=== PATIENT | female | born 1995 | race Caucasian/White ===

== ENCOUNTER 2022-01-25 17:15 | Outpatient (REF) | payer MEDICAID, SELFPAY ==
[2022-01-27 14:12] LABS: H Pylori Breath Test Positive (Negative)
== END 2022-01-25 17:16 | disposition home or self-care (01) ==
LOC: HO.LNP 17:15
PROVIDERS: Visit Provider Nurse Practitioner Family
DX: K21.9 Gastro-esophageal reflux disease without esophagitis (principal); K58.1 Irritable bowel syndrome with constipation; K59.04 Chronic idiopathic constipation
CPT/HCPCS: 83013; 99202

== ENCOUNTER 2022-03-28 09:18 | Outpatient (REF) | payer MEDICAID, SELFPAY ==
[2022-03-28 10:32] LABS: Amylase 33 U/L (28-100); Lipase 18 U/L (8-78)
[2022-03-28 10:44] LABS: TSH reflex Free T4 0.01 uIU/mL (0.32-4.0)
[2022-03-28 11:11] LABS: Vitamin B12 233 pg/mL (200-900)
[2022-03-28 13:23] LABS: Free T4 (Free Thyroxine) 1.43 ng/dL (0.71-1.85)
[2022-04-01 15:23] LABS: Vitamin D 25-OH, D2 <4 ng/mL; Vitamin D 25-OH, D3 18 ng/mL; Vitamin D 25-OH, Total 18 ng/mL (30-100)
[2022-04-06 17:41] LABS: Pancreatic Elastase-1 >500 mcg/g
== END 2022-03-28 09:19 | disposition home or self-care (01) ==
LOC: HO.LAB 09:18
PROVIDERS: Visit Provider Nurse Practitioner Family
DX: Z01.818 Encounter for other preprocedural examination (principal); R10.9 Unspecified abdominal pain; E55.9 Vitamin D deficiency, unspecified; R19.7 Diarrhea, unspecified; K21.9 Gastro-esophageal reflux disease without esophagitis; K58.2 Mixed irritable bowel syndrome; K62.5 Hemorrhage of anus and rectum
CPT/HCPCS: 36415; 82150; 82306; 82607; 82656; 82746; 83690; 84439; 84443; 87338; 99212

== ENCOUNTER 2022-04-06 10:38 | Day surgery (SDC) | payer MEDICAID, SELFPAY ==
--- NOTE | 2022-04-05 14:56 | P.CONAN_ITS ---
Documented by User: Mikayla Mon NP 04/05/22 14:57 HPI - Anesthesia Eval Consult details Narrative: 26yo F for Upper Endoscopy and Colonoscopy [facility] Past Medical History Medical History Anxiety Hx of ectopic Subclinical hyperthyroidism Family History Family History Mother Ovarian cancer Social History Social History Household Members: Family Alcohol intake: never Patient Tobacco Use Status: Never used Tobacco e-Cigarette/Vaping Use: Never Used Use of substances other than those prescribed or required for medical reasons: Yes Substance Use Type: Marijuana Substance Use Frequency: Occasionally Are you DNR?: No Advance Directives: No Advance Directives Information Provided: Yes Meds Allergies Allergy/AdvReac Type Severity Reaction Status Date / Time No Known Allergies Allergy Verified 04/06/22 11:40 Home Medications Medication Instructions Recorded Confirmed Last Taken Type hydroxyzine HCl 25 mg tablet 25 - 50 mg PO TID PRN anxiety 01/25/22 04/06/22 Unknown History Exam Exam Date and Time: April 05, 2022 202 Assessment and Plan Assessment Anesthesia Assessment: Chart Reviewed Documented by User: Rachel Blankenship MD 04/06/22 12:52 [facility] Past Medical History Medical History Anxiety Hx of ectopic Subclinical hyperthyroidism Functional capacity: independent ambulation Patient : No Family History Family History Mother Ovarian cancer Family history of problems with anesthesia: No Surgical History History of Problems with Anesthesia: No Social History Social History Household Members: Family Alcohol intake: never Patient Tobacco Use Status: Never used Tobacco e-Cigarette/Vaping Use: Never Used Use of substances other than those prescribed or required for medical reasons: Yes Substance Use Type: Marijuana Substance Use Frequency: Occasionally Are you DNR?: No Advance Directives: No Advance Directives Information Provided: Yes Meds Allergies Allergy/AdvReac Type Severity Reaction Status Date / Time No Known Allergies Allergy Verified 04/06/22 11:40 Home Medications Medication Instructions Recorded Confirmed Last Taken Type hydroxyzine HCl 25 mg tablet 25 - 50 mg PO TID PRN anxiety 01/25/22 04/06/22 Unknown History Exam Airway Mallampati Class: II TM Dist: >3cm Neck ROM: Full Heart: RRR Lungs: CTA Assessment and Plan Final Anesthetic Review Family History of Problems with Anesthesia: No History of Problems with Anesthesia: No ASA Class: II Final Preanesthetic Review: No Changes in Pt Med Stat, Meds/Allgs Chart Reviewed, Consent Obtained/Reviewed and Anes Risks/Benef Reviewed Patient Risk: Low Procedure Risk: Low Anesthetic Plan Anesthetic Plan: MAC: Disposition: Standard PACU
[2022-04-06 11:38] VITALS: BMI 24.5
[2022-04-06 11:47] VITALS: BP 113/67; PULSE 76; RESP 15; TEMP 36.7; O2SAT 99
[2022-04-06] MEDS: Lactated Ringers 1,000 ML 100 ML IVCONT (11:53)
[2022-04-06 11:55] LABS: UPreg QC Valid YES; Urine Pregnancy NEGATIVE (NEGATIVE)
--- NOTE | 2022-04-06 13:57 | MHC.SHP ---
Pre-Procedural Eval Section A Date of Service: 04/06/22 The patient is an INPATIENT: No Changes since office visit: Yes Patient answered all questions; No Cold of Flu in the past 2 weeks, No New Medical Problems and No Changes in Medication The History & Physical has been completed within 30 days and I have reviewed it.: Yes Section B Chief Complaint: IBS,reflux disease Allergies: Allergies Allergy/AdvReac Type Severity Reaction Status Date / Time No Known Allergies Allergy Verified 04/06/22 11:40 Plan I have reviewed the history and physical and performed a pertinent physical examination on my patient. No changes have occurred unless specified.
--- NOTE | 2022-04-06 14:00 | PM.OP ---
Brief Operative Note Date of Service: 04/06/22 Pre-op diagnosis: Abdominal pain, dyspepsia, bloating, hx of H Pylori infection, diarrhea, rectal bleeding Post-op diagnosis: other (Gastritis, diverticulosis, hemorrhoids) Procedure: FLEXIBLE TRANSORAL UPPER GASTROINTESTINAL ENDOSCOPY WITH BIOPSIES AND COLONOSCOPY TILL CECUM WITH UPPER ENDOSCOPY Consent: Indications for the procedure and potential complications of bleeding, perforation, reaction to medications and missed diagnosis were discussed with the patient and informed consent was obtained. Instrument: Olympus GIF H 190 mid size upper endoscope Monitoring: Vital signs and clinical assessment, continuous EKG monitoring, Pulse oximetry, Carbon Dioxide monitoring and blood pressure monitoring were done throughout the procedure. Procedure: The patient was placed in the left lateral decubitis position and pre-procedure medications were administered and a bite block was placed. The endoscope was inserted into the mouth and advanced under direct vision to the third part of duodenum. A careful inspection was made as the upper endoscope was withdrawn including a retroflexed examination of the proximal stomach; Findings and interventions are described below. Findings: Larynx: Normal Esophagus: GE junction at 35 cms. No esophagitis or Casillas's. Stomach: Mild gastric erythema. Biopsies were obtained. Grade 2 flap valve on retroflexed examination of the cardia. Duodenum: Normal bulb and descending duodenum. Biopsies were obtained from 3rd part of the duodenum to check for celiac sprue. Intervention: Biopsies as noted above COLONOSCOPY PROCEDURE NOTE Consent: Indications for the procedure and potential complications of bleeding, perforation, reaction to medications and missed diagnosis were discussed with the patient and informed consent was obtained. Instrument: Olympus PCF H 190 L variable stiffness pediatric colonoscope Monitoring: Vital signs and clinical assessment, intermittent blood pressure monitoring, continuous EKG monitoring, Pulse oximetry and Carbon Dioxide monitoring were done throughout the procedure. Colon withdrawl time was 18 minutes. Procedure: The patient was placed in the left lateral decubitis position and pre-procedure medications were administered. After a digital rectal examination of the ano-rectum, the video colonoscope was inserted into the rectum and advanced through the colon to the cecum. The colonoscope was slowly withdrawn in a retrograde panoramic fashion and the colon mucosa was carefully examined including a retroflexed view of the rectum. Findings and interventions are described below. Procedure Difficulty: : Without difficulty Findings: Terminal Ileum: Distal 5 cms was examined and multiple 2-3 mm nodules - biopsies were obtained. Cecum: Normal Ascending Colon: Normal Transverse Colon: Normal Descending Colon: Normal Sigmoid Colon: Moderate diverticulosis Rectum: Normal Ano-rectum: Moderate internal hemorrhoids Colon preparation: Good Impression and Post Procedure Diagnosis: Endoscopy Findings: STOMACH: Mild antral gastritis - antral biopsies were obtained to check for H pylori culture and sensitivity. DUODENUM: Normal - biopsied to check for celiac sprue Colonoscopy Findings: No polyps were detected. Multiple 2-3 mm nodules in TI (likely lymphoid hyperplasia) - biopsies were obtained. Random biopsies were obtained from TI, rt and left colon Moderate diverticulosis seen in the sigmoid colon Moderate hemorrhoids on retroflexed exam. Plan: Await pathology results Patient has an appointment on 08/20/22 in the GI Clinic with Carole Castillo FNP-BC. Repeat Colonoscopy interval based on path results - in 20 yrs if biopsies are negative. H Pylori and diverticulosis handouts were given in the discharge area Surgeon: Jasmine Oh MD Anesthesia: MAC Was an Information Systems Analyst used for this Procedure?: No Information Systems Analyst: Amelia Huston Estimated blood loss (mL): 0 Pathology: other (A: Small bowel bx. rule out celiac disease. B: Gastric antrum bx. for H.pylori C: Gastric antrum bx. culture and sensitivity ( sent apart to the lab [facility]) not include in this package D: Terminal ileum bx. rule out IBD. ) Condition: stable Disposition: PACU
--- NOTE | 2022-04-06 14:01 | W.PM.OPN ---
Operative Note Operative Note Date of Service: 04/06/22 Narrative: Pre-op diagnosis: Abdominal pain, dyspepsia, bloating, hx of H Pylori infection, diarrhea, rectal bleeding Post-op diagnosis:?other (Gastritis, diverticulosis, hemorrhoids) Procedure: FLEXIBLE TRANSORAL UPPER GASTROINTESTINAL ENDOSCOPY WITH BIOPSIES AND COLONOSCOPY TILL CECUM WITH BIOPSIES UPPER ENDOSCOPY Consent:?Indications for the procedure and potential complications of bleeding, perforation, reaction to medications and missed diagnosis were discussed with the patient and informed consent was obtained. Instrument:?Olympus GIF H 190 mid size upper endoscope Monitoring: Vital signs and clinical assessment, continuous EKG monitoring, Pulse oximetry, Carbon Dioxide monitoring and blood pressure monitoring were done throughout the procedure. Procedure:?The patient was placed in the left lateral decubitis position and pre-procedure medications were administered and a bite block was placed. The endoscope was inserted into the mouth and advanced under direct vision to the third part of duodenum. A careful inspection was made as the upper endoscope was withdrawn including a retroflexed examination of the proximal stomach; Findings and interventions are described below. Findings: Larynx:? Normal Esophagus:?GE junction at 35 cms. No esophagitis or Casillas's. Stomach:?Mild gastric erythema. Biopsies were obtained. Grade 2 flap valve on retroflexed examination of the cardia. Duodenum:?Normal bulb and descending duodenum. Biopsies were obtained from 3rd part of the duodenum to check for celiac sprue. Intervention:?Biopsies as noted above COLONOSCOPY PROCEDURE NOTE Consent:?Indications for the procedure and potential complications of bleeding, perforation, reaction to medications and missed diagnosis were discussed with the patient and informed consent was obtained. Instrument:?Olympus PCF H 190 L variable stiffness pediatric colonoscope Monitoring:?Vital signs and clinical assessment, intermittent blood pressure monitoring, continuous EKG monitoring, Pulse oximetry and Carbon Dioxide monitoring were done throughout the procedure. Colon withdrawl time was 18 minutes. Procedure:?The patient was placed in the left lateral decubitis position and pre-procedure medications were administered. After a digital rectal examination of the ano-rectum, the video colonoscope was inserted into the rectum and advanced through the colon to the cecum. The colonoscope was slowly withdrawn in a retrograde panoramic fashion and the colon mucosa was carefully examined including a retroflexed view of the rectum. Findings and interventions are described below. Procedure Difficulty:?: Without difficulty Findings: Terminal Ileum: Distal 5 cms was examined and multiple 2-3 mm nodules - biopsies were obtained. Cecum:? Normal Ascending Colon:??Normal Transverse Colon:??Normal Descending Colon:? Normal Sigmoid Colon:??Moderate diverticulosis Rectum:??Normal Ano-rectum:??Moderate internal hemorrhoids Colon preparation:? Good? Impression and Post Procedure Diagnosis: Endoscopy Findings: STOMACH:? Mild antral gastritis - antral biopsies were obtained to check for H pylori culture and sensitivity. DUODENUM:???Normal - biopsied to check for celiac sprue Colonoscopy Findings: No polyps were detected. Multiple 2-3 mm nodules in TI (likely lymphoid hyperplasia) - biopsies were obtained. Random biopsies were obtained from TI, rt and left colon Moderate diverticulosis seen in the sigmoid colon Moderate hemorrhoids on retroflexed exam. Plan: Await pathology results Patient has an appointment on 08/20/22 in the GI Clinic with Carole Castillo FNP-BC. Repeat Colonoscopy interval based on path results - in 20 yrs if biopsies are negative. H Pylori and diverticulosis handouts were given in the discharge area Surgeon: Jasmine Oh MD Anesthesia:?MAC Was an Clinical Medical Transcriptionist used for this Procedure?:?No Clinical Medical Transcriptionist:?Amelia Huston Estimated blood loss (mL):?0 Pathology:?other (A: Small bowel bx. rule out celiac disease.? B: Gastric antrum bx. for H.pylori? C: Gastric antrum bx. culture and sensitivity ( sent apart to the lab [facility]) not include in this package? D: Terminal ileum bx. rule out IBD. ? ? ? ) Condition:?stable Disposition:?PACU
[2022-04-06 14:52] VITALS: BP 101/51; PULSE 77; RESP 16; TEMP 36.5; O2SAT 100
[2022-04-06 15:07] VITALS: BP 104/50; PULSE 57; RESP 18; O2SAT 100
[2022-04-06 15:22] VITALS: BP 119/65; PULSE 64; RESP 16; O2SAT 100
[2022-04-06 15:37] VITALS: BP 119/65; PULSE 58; RESP 16; TEMP 36.3; O2SAT 100
--- NOTE | 2022-04-06 15:52 | HO.POSTANES ---
Post Anesthesia Evaluation Post Anesthesia Evaluation Vital Signs: Vital Signs Temp Pulse Resp BP Pulse Ox O2 Del Method O2 Flow Rate 04/06/22 15:37 97.3 F 58 16 119/65 100 Room Air 04/06/22 15:22 64 16 119/65 100 Room Air 04/06/22 15:07 57 18 104/50 L 100 Nasal Cannula 2 04/06/22 14:52 97.7 F 77 16 101/51 L 100 Nasal Cannula 2 04/06/22 11:47 98.0 F 76 15 113/67 99 Room Air Anesthesia: Monitored Mental Status: Awake Pain Control: Satisfactory Nausea/Vomiting: None Hydration: Adequate Anesthesia-Related Issues: No Anes. Related Issues
== END 2022-04-06 16:05 | disposition home or self-care (01) ==
PROVIDERS: Nurse Practitioner; Visit Provider Internal Medicine Gastroenterology
PROC: (CPT 45380; principal; 2022-04-06 12:30)
DX: K58.2 Mixed irritable bowel syndrome (principal); K62.5 Hemorrhage of anus and rectum; K57.30 Diverticulosis of large intestine without perforation or abscess without bleeding; K64.8 Other hemorrhoids; K21.9 Gastro-esophageal reflux disease without esophagitis; K29.50 Unspecified chronic gastritis without bleeding; E55.9 Vitamin D deficiency, unspecified; B96.81 Helicobacter pylori [H. pylori] as the cause of diseases classified elsewhere; Z79.899 Other long term (current) drug therapy
CPT/HCPCS: 45380; 43239; 36415; 81025; 87081; 88305; 88342; J2250

== ENCOUNTER 2022-05-15 17:13 | Outpatient (REF) | payer MEDICAID, SELFPAY ==
[2022-05-16 13:29] LABS: H Pylori Breath Test Positive (Negative)
== END 2022-05-15 17:14 | disposition home or self-care (01) ==
LOC: HO.LNP 17:13
PROVIDERS: Visit Provider Nurse Practitioner Family
DX: K21.9 Gastro-esophageal reflux disease without esophagitis (principal); K58.1 Irritable bowel syndrome with constipation; K62.5 Hemorrhage of anus and rectum; A04.8 Other specified bacterial intestinal infections; K29.50 Unspecified chronic gastritis without bleeding; Z11.0 Encounter for screening for intestinal infectious diseases
CPT/HCPCS: 83013; 99212